=== PATIENT | male | born 1975 | race Caucasian/White ===

== ENCOUNTER → 2019-08-12 09:50 | Outpatient (CLI) | payer MEDICAID ==
--- NOTE | 2019-08-15 12:08 | ST ---
PATIENT:VICTORIA WINSLOW MEDICAL RECORD: [id number] SEX: M LOCATION:[facility] ORDER #: ADMISSION DATE: 08/12/19 AGE OF PATIENT: 43 REFERRING PHYSICIAN: INTERPRETING PHYSICIAN: AMBER GUNN MD DATE OF SERVICE: 08/12/2019 PROCEDURE: Nuclear stress test. INDICATION: Angina, shortness of breath. TECHNIQUE: The patient was exercised on standard Aleksandar protocol for 6 minutes and 30 seconds, terminated due to achievement of 85% max target heart rate response with 32 mCi of sestamibi injected at peak stress, 11 mCi used previously for rest images. FINDINGS: Gated SPECT reveals preserved ejection fraction at 70% with good wall motion and thickening and brightening throughout all segments. SPECT imaging Cardiolite was used as myocardial fusion agent. There is homogeneous uptake throughout all segments at rest and stress with no evidence of inducible ischemia or previous infarction. OVERALL IMPRESSION: 1. This is a normal nuclear stress test with no evidence of inducible ischemia or previous infarction. 2. Gated SPECT reveals a preserved ejection fraction at 70%. In this patient with ongoing symptomatology, the current scan does not suggest the presence of hemodynamically significant coronary artery disease. Evaluate noncardiac etiology of chest pain. TRANSINT:[id number] Voice Confirmation ID: [id number] DOCUMENT ID: [id number] AMBER GUNN MD at 1208 CC: SHANNON HERNANDEZ DO [id number] DICTATION DATE: 08/14/19 1322 C PYTHON DEVELOPER: 08/15/19 0730 DEP CLI 08/12/19 [place] [id number]
== END | disposition home or self-care (01) ==
LOC: D.HCCARDIO 09:50
PROVIDERS: ATTEND Internal Medicine Interventional Cardiology
DX: R07.9 Chest pain, unspecified (principal)